=== PATIENT | male | born 1980 | race Asian ===

== ENCOUNTER → 2016-11-08 | Outpatient (CLI) | payer BC | LOC: BMCIMAGING 09:19 | PROVIDERS: ATTEND Podiatrist Foot & Ankle Surgery | DX: R22.41 Localized swelling, mass and lump, right lower limb (principal) ==

== ENCOUNTER → 2017-07-02 | Outpatient (CLI) | payer BC | LOC: BMCIMAGING 15:53 | PROVIDERS: ATTEND Podiatrist Foot & Ankle Surgery | DX: M25.571 Pain in right ankle and joints of right foot (principal); M77.31 Calcaneal spur, right foot ==

== ENCOUNTER → 2017-07-07 | Outpatient (CLI) | payer BC | LOC: FIMAGING 10:08 | PROVIDERS: ATTEND Podiatrist Foot & Ankle Surgery | DX: S96.211A Strain of intrinsic muscle and tendon at ankle and foot level, right foot, initial encounter (principal); M76.61 Achilles tendinitis, right leg; M72.2 Plantar fascial fibromatosis ==

== ENCOUNTER → 2017-11-05 | Outpatient (CLI) | payer BC | LOC: FIMAGING 18:33 | DX: M23.611 Other spontaneous disruption of anterior cruciate ligament of right knee (principal); M23.631 Other spontaneous disruption of medial collateral ligament of right knee; M22.41 Chondromalacia patellae, right knee; M25.461 Effusion, right knee ==